=== PATIENT | female | born 1950 | race Hispanic/Latino ===

== ENCOUNTER → 2023-06-10 | Outpatient (CLI) | payer OTHER, MEDICARE ==
[2023-06-10 10:35] LABS: CREATININE 0.5 mg/dL (0.5-1.5)
== END | disposition home or self-care (01) ==
LOC: LAB 09:41
PROVIDERS: ATTEND Student in an Organized Health Care Education/Training Program
DX: R10.9 Unspecified abdominal pain (principal)
CPT/HCPCS: 36415; 82565; 84520

== ENCOUNTER → 2023-06-17 | Outpatient (CLI) | payer OTHER, MEDICARE ==
[~2023-06-17] MED LIST: IOHEXOL-350 75 ML VIAL IV ONE
== END | disposition home or self-care (01) ==
LOC: RAH 07:12
PROVIDERS: ATTEND Student in an Organized Health Care Education/Training Program
DX: K40.20 Bilateral inguinal hernia, without obstruction or gangrene, not specified as recurrent (principal); R10.9 Unspecified abdominal pain; Z90.49 Acquired absence of other specified parts of digestive tract
CPT/HCPCS: 74177; Q9967

== ENCOUNTER → 2025-06-19 | Outpatient (CLI) | payer OTHER, MEDICARE ==
--- NOTE | 2025-06-19 23:26 | HMCIMG ---
MR CERVICAL SPINE WITHOUT IV CONTRAST Clinical History: M54.12 Radiculopathy, cervical region Technique: Magnetic resonance images of the cervical spine without intravenous contrast in multiple planes. Series acquired: 2 - LOCALIZER - TR: 700.0 - TE: 79.9 - ET: 1.0 - Thk: 5.0 300 - SC:SAG T2 FRFSE - TR: 3478.0 - TE: 119.0 - ET: 27.0 - Thk: 3.0 400 - SC:SAG T1 FSE - TR: 453.0 - TE: 16.2 - ET: 4.0 - Thk: 3.0 500 - SC:SAG STIR - TR: 4349.0 - TE: 39.7 - ET: 13.0 - Thk: 3.0 600 - SC:AX T2 FRFSE - TR: 5034.0 - TE: 119.9 - ET: 14.0 - Thk: 3.0 Contrast: None. Comparison: None provided. Findings: Vertebrae: No vertebral compression fractures are seen. No masses or infiltrative bone marrow disease detected. Alignment: Loss of cervical lordosis is noted. Bony alignment is otherwise anatomic. Spinal Cord/Brain: Mild myelomalacia is present at the C6-C7 level associated with cord compression. No other abnormality is seen in the spinal cord. No abnormality is seen in the visualized portions of the brain. Findings by Level: C2-C3: Disc space height is maintained with adequate disc hydration. No disc bulge or herniation is noted. No neural foraminal or spinal canal stenosis is seen. Facet joints are normal. C3-C4: There is multilevel anterior and posterior marginal osteophytosis and disc desiccation changes extending through this level. Disc osteophyte complex is present causing compression of the thecal sac contributing to Grade I central canal stenosis. Left-sided uncovertebral and facet joint degeneration cause left neural foraminal stenosis. C4-C5: Disc osteophyte complex is seen causing compression of the thecal sac, resulting in Grade I central canal stenosis. Left-sided uncovertebral and facet joint degenerative changes cause left neural foraminal stenosis. Disc space height is maintained with disc desiccation. C5-C6: There is disc desiccation with reduced disc space height. A disc osteophyte complex is present causing compression of the thecal sac with Grade I central canal stenosis. Left-sided uncovertebral and facet joint degenerative changes cause left neural foraminal stenosis. C6-C7: A disc osteophyte complex with a 4.8 mm postero-central disc protrusion is causing Grade III central canal stenosis with cord compression and associated mild myelomalacia. Left-sided uncovertebral and facet joint degenerative changes are noted causing left neural foraminal stenosis. C7-T1: Disc space height is maintained with adequate disc hydration. No disc bulge or herniation is noted. No neural foraminal or spinal canal stenosis is seen. Facet joints are normal. Paraspinal Soft Tissues: No soft tissue abnormality is noted. IMPRESSION: 1. Disc osteophyte complex at C6-C7 with 4.8 mm postero-central disc protrusion causing Grade III central canal stenosis, cord compression, and mild myelomalacia. 2. Multilevel degenerative changes from C3-C4 to C6-C7, with Grade I central canal stenosis at C3-C4, C4-C5, and C5-C6. 3. Left neural foraminal stenosis from C3-C4 to C6-C7. /[place]
== END | disposition home or self-care (01) ==
LOC: RAH 14:18
PROVIDERS: ATTEND Family Medicine
DX: M47.22 Other spondylosis with radiculopathy, cervical region (principal); M48.02 Spinal stenosis, cervical region; M25.78 Osteophyte, vertebrae; G95.89 Other specified diseases of spinal cord; M50.123 Cervical disc disorder at C6-C7 level with radiculopathy; M50.122 Cervical disc disorder at C5-C6 level with radiculopathy; M50.121 Cervical disc disorder at C4-C5 level with radiculopathy; R29.898 Other symptoms and signs involving the musculoskeletal system
CPT/HCPCS: 72141